=== PATIENT | male | born 1980 | race Hispanic/Latino ===

== ENCOUNTER 2018-01-20 09:20 | Day surgery (SDC) | payer MEDICARE ==
[2018-01-19 08:40] VITALS: BP 148/71
[2018-01-19 08:44] LABS: BASOPHILS % (AUTO) 0.9 % (0.0-5.0); EOSINOPHILS % (AUTO) 6.6 % (0.0-8.0); HEMATOCRIT 27.5 % (42-54); LYMPHOCYTES % (AUTO) 20.6 % (21.0-51.0); MEAN CORPUSCULAR HEMOGLOBIN 31.1 pg (27.0-33.0); MEAN CORPUSCULAR HGB CONC 34.6 g/dL (32.0-36.0); MEAN CORPUSCULAR VOLUME 89.8 fL (79-99); MONOCYTES % (AUTO) 8.3 % (3.0-13.0); NEUTROPHILS % (AUTO) 63.6 % (40.0-77.0); PLATELET COUNT (AUTO) 134 K/uL (130-400); RED BLOOD CELL COUNT(AUTO) 3.06 MIL/uL (4.50-6.20); RED CELL DISTRIBUTION WIDTH 16.1 % (11.0-15.5); WHITE BLOOD COUNT (AUTO) 6.5 K/uL (4.8-10.8)
[2018-01-19 08:55] LABS: POTASSIUM 4.7 mmol/L (3.5-5.1)
[2018-01-19 08:56] LABS: INR 0.97 (0.85-1.15); PARTIAL THROMBOPLASTIN TIME 27.2 SEC (26.3-35.5); PROTHROMBIN TIME 10.2 SEC (9.6-11.6)
[2018-01-19 08:58] LABS: CREATININE 10.3 mg/dL (0.5-1.5)
[~2018-01-20] VITALS: Ht 177.8 cm; Wt 87.8 kg
[2018-01-20] VITALS (7 sets, daily range): BP systolic 149–155; BP diastolic 81–84
[~2018-01-20 09:20] MED LIST: ALPR2TAB7 PO; AMLO10TA2 PO; CINA30 PO; HUM10VIA6 SQ; LABE300T2 PO; LEVO50TA11 PO; LISI30TA4 PO; LORA10TA7 PO; PARO-37 PO; ROSU20TA PO; SODIUM CHLORIDE 0.9% 500ML 500 ML IV SCH
[2018-01-20] MEDS ORDERED: LIDOCAINE HCL 2% 20ML ONE (10:19)
[2018-01-20] MEDS ORDERED: IOPAMIDOL-370 100 ML VIAL IV ONE (10:19)
[2018-01-20] MEDS ORDERED: NITROGLYCERIN 5 MG/ML 10 ML VIAL IV ONE (10:19)
[2018-01-20] MEDS ORDERED: HEPARIN SODIUM 1000UNIT/ML 10ML VIAL ONE (10:19)
[2018-01-20] MEDS ORDERED: SODIUM CHLORIDE 0.9% 1000ML 1,000 ML IV ONE (10:22)
[2018-01-20] MEDS ORDERED: ISOVUE-370 50ML VIAL IV ONE ×2 (10:40→11:06)
[2018-01-20] MEDS ORDERED: MIDAZOLAM HCL 1 MG/ML 2ML VIAL ONE ×2 (10:59→11:18)
[2018-01-20] MEDS ORDERED: FENTANYL CITRATE PF 50 MCG/1 ML 2ML VIAL ONE (10:59)
[2018-01-20] MEDS ORDERED: ISOVUE-300 100 ML VIAL IV ONE (11:05)
[2018-01-20] MEDS ORDERED: ONDANSETRON HCL 4 MG/2 ML VIAL ONE (11:34)
[2018-01-20] MEDS ORDERED: NITROGLYCERIN 0.4 MG SL TAB SL PRN (11:45)
[2018-01-20] MEDS ORDERED: DEXTROSE 50%-WATER 50 ML DISP.SYRIN IV PRN (11:45)
[2018-01-20] MEDS ORDERED: GLUCAGON 1MG KIT 1 MG ML IM PRN (11:45)
[2018-01-20] MEDS ORDERED: HYDRALAZINE HCL 20 MG/ML VIAL ONE (11:53)
[2018-01-20] MEDS ORDERED: INSULIN HUMULIN R 100 UNIT/ML 3ML SQ SCH (16:30)
== END 2018-01-20 15:50 | disposition home or self-care (01) ==
LOC: DAH 09:20
PROVIDERS: ATTEND Internal Medicine Cardiovascular Disease
DX: I25.10 Atherosclerotic heart disease of native coronary artery without angina pectoris (principal); I73.89 Other specified peripheral vascular diseases; E11.22 Type 2 diabetes mellitus with diabetic chronic kidney disease; N18.6 End stage renal disease; Z99.2 Dependence on renal dialysis; E11.40 Type 2 diabetes mellitus with diabetic neuropathy, unspecified; E78.5 Hyperlipidemia, unspecified; Z98.890 Other specified postprocedural states; Z83.3 Family history of diabetes mellitus; Z79.899 Other long term (current) drug therapy; Z79.4 Long term (current) use of insulin; Z79.84 Long term (current) use of oral hypoglycemic drugs; I31.3 Pericardial effusion (noninflammatory); I13.2 Hypertensive heart and chronic kidney disease with heart failure and with stage 5 chronic kidney disease, or end stage renal disease; I50.32 Chronic diastolic (congestive) heart failure; I70.218 Atherosclerosis of native arteries of extremities with intermittent claudication, other extremity
CPT/HCPCS: 36415; 71045; 75630; 80048; 82948 ×2; 85025; 85610; 85730; 93005; 93306; 93458; 99152; C1760; C1894 ×2; J0360; J1644; J2250 ×2; J2405; J3010; J3490 ×2; J7030; Q9967 ×3; 75625; 99153; 99156; 99157

== ENCOUNTER 2018-02-01 16:25 | Emergency (ER) | payer MEDICARE ==
[~2018-02-01 16:25] MED LIST changes: -SODIUM CHLORIDE 0.9% 500ML 500 ML IV SCH
[2018-02-01] MEDS ORDERED: ACETAMINOPHEN EXTRA STRENGTH 500 MG TABLET ONE (16:45)
== END 2018-02-01 17:24 | disposition home or self-care (01) ==
LOC: EDH 16:25
DX: S90.32XA Contusion of left foot, initial encounter (principal); I13.2 Hypertensive heart and chronic kidney disease with heart failure and with stage 5 chronic kidney disease, or end stage renal disease; E11.22 Type 2 diabetes mellitus with diabetic chronic kidney disease; N18.6 End stage renal disease; I50.9 Heart failure, unspecified; Z99.2 Dependence on renal dialysis; Z86.73 Personal history of transient ischemic attack (TIA), and cerebral infarction without residual deficits; W05.0XXA Fall from non-moving wheelchair, initial encounter; Y93.89 Activity, other specified; Y92.098 Other place in other non-institutional residence as the place of occurrence of the external cause; Y99.8 Other external cause status
CPT/HCPCS: 73630

== ENCOUNTER 2018-06-04 16:52 | Emergency (ER) | payer MEDICARE ==
[~2018-06-04 16:52] MED LIST changes: -AMLO10TA2 PO; +AMLO10TA6 PO
[2018-06-04 17:09] LABS: BASOPHILS % (AUTO) 1.2 % (0.0-5.0); EOSINOPHILS % (AUTO) 6.9 % (0.0-8.0); HEMATOCRIT 33.7 % (42-54); LYMPHOCYTES % (AUTO) 23.7 % (21.0-51.0); MEAN CORPUSCULAR HEMOGLOBIN 27.7 pg (27.0-33.0); MEAN CORPUSCULAR VOLUME 86.6 fL (79-99); MONOCYTES % (AUTO) 8.3 % (3.0-13.0); NEUTROPHILS % (AUTO) 59.9 % (40.0-77.0); NUCLEATED RED BLOOD CELLS 0.1 % (0.0-0.19); PLATELET COUNT (AUTO) 183 K/uL (130-400); RED CELL DISTRIBUTION WIDTH 16.9 % (11.0-15.5)
[2018-06-04 17:19] LABS: INR 0.98 (0.85-1.15); PARTIAL THROMBOPLASTIN TIME 26.8 SEC (26.3-35.5); PROTHROMBIN TIME 10.3 SEC (9.6-11.6)
[2018-06-04 17:22] LABS: ALBUMIN 3.2 g/dL (3.5-5.0); BILIRUBIN,TOTAL 0.5 mg/dL (0.2-1.0); POTASSIUM 4.4 mmol/L (3.5-5.1); TOTAL PROTEIN, SERUM 6.4 g/dL (6.0-8.3)
[2018-06-04] MEDS ORDERED: NITROGLYCERIN 1GM/1 INCH PACKET TD ONE (17:23)
[2018-06-04] MEDS ORDERED: ASPIRIN 325 MG TABLET ONE (17:23)
[2018-06-04 17:39] LABS: CREATININE 9.5 mg/dL (0.5-1.5)
[2018-06-04 17:40] LABS: B-TYPE NATRIURETIC PEPTIDE 1630 pg/mL (0-100)
[2018-06-04 17:43] LABS: TROPONIN I 0.04 ng/mL (0.00-0.06)
== END 2018-06-04 19:27 | disposition left against medical advice (07) ==
LOC: EDH 16:52
DX: R07.1 Chest pain on breathing (principal); I13.2 Hypertensive heart and chronic kidney disease with heart failure and with stage 5 chronic kidney disease, or end stage renal disease; E11.22 Type 2 diabetes mellitus with diabetic chronic kidney disease; N18.6 End stage renal disease; I50.9 Heart failure, unspecified; E78.5 Hyperlipidemia, unspecified; Z99.2 Dependence on renal dialysis; Z86.73 Personal history of transient ischemic attack (TIA), and cerebral infarction without residual deficits; Z98.890 Other specified postprocedural states
CPT/HCPCS: 36415; 71045; 80053; 82550; 83874; 83880; 84484; 85025; 85610; 85730; 93005

== ENCOUNTER → 2022-06-23 | Outpatient (CLI) | payer MEDICARE ==
[~2022-06-23] MED LIST changes: +AMLO-258 PO; -AMLO10TA6 PO; -LABE300T2 PO; +LABE300T4 PO; +REGADENOSON 0.4 MG/5 ML PF SYG IVP SCH; -ROSU20TA PO; +ROSU20TA23 PO
== END | disposition home or self-care (01) ==
LOC: SHCH 09:16
PROVIDERS: ATTEND Internal Medicine Cardiovascular Disease
DX: I25.119 Atherosclerotic heart disease of native coronary artery with unspecified angina pectoris (principal); R07.9 Chest pain, unspecified
CPT/HCPCS: 78452; 93017; J2785; A9500 ×2; 96374

== ENCOUNTER → 2022-08-06 | Outpatient (CLI) | payer MEDICAID, MEDICARE ==
[~2022-08-06] MED LIST changes: -REGADENOSON 0.4 MG/5 ML PF SYG IVP SCH
== END | disposition home or self-care (01) ==
LOC: SHCH 12:50
PROVIDERS: ATTEND Internal Medicine Cardiovascular Disease
DX: I87.2 Venous insufficiency (chronic) (peripheral) (principal); I65.23 Occlusion and stenosis of bilateral carotid arteries; I73.9 Peripheral vascular disease, unspecified
CPT/HCPCS: 93880; 93925; 93970

== ENCOUNTER 2022-10-21 07:26 | Day surgery (SDC) | payer MEDICAID ==
[2022-10-19 13:41] LABS: APPEARANCE,URINE CLEAR (CLEAR); BILIRUBIN,URINE NEGATIVE (NEGATIVE); COLOR,URINE LIGHT-YELLOW (YELLOW); GLUCOSE, URINE (UA) 500 mg/dL (NEGATIVE); KETONES,URINE NEGATIVE (NEGATIVE); LEUKOCYTE ESTERASE ,URINE NEGATIVE Leu/uL (NEGATIVE); NITRATE,URINE NEGATIVE (NEGATIVE); OCCULT BLOOD,URINE NEGATIVE (NEGATIVE); PROTEIN,URINE 10 mg/dL (NEGATIVE); UROBILINOGEN,URINE 0.2 mg/dL (0.2-1.0)
[2022-10-19 13:47] LABS: BACTERIA,URINE FEW /HPF (None Seen); MUCUS,URINE RARE LPF (None Seen); SQUAMOUS EPITHELIAL CELL,UR RARE /HPF (0-2)
[2022-10-19 14:07] LABS: BASOPHILS % (AUTO) 0.4 % (0.0-5.0); EOSINOPHILS % (AUTO) 1.5 % (0.0-8.0); HEMATOCRIT 43.7 % (42-54); LYMPHOCYTES % (AUTO) 15.9 % (21.0-51.0); MEAN CORPUSCULAR HGB CONC 31.6 g/dL (32.0-36.0); MONOCYTES % (AUTO) 9.3 % (3.0-13.0); NEUTROPHILS % (AUTO) 72.7 % (40.0-77.0); PLATELET COUNT (AUTO) 202 K/uL (130-400); RED CELL DISTRIBUTION WIDTH 13.3 % (11.0-15.5); WHITE BLOOD COUNT (AUTO) 8.2 K/uL (4.8-10.8)
[2022-10-19 14:12] VITALS: BP 145/70
[2022-10-19 14:17] LABS: PROTHROMBIN TIME 10.9 SEC (9.6-11.6)
[2022-10-19 14:19] LABS: PARTIAL THROMBOPLASTIN TIME 30.8 SEC (26.3-35.5)
[2022-10-19 14:31] LABS: CREATININE 1.9 mg/dL (0.5-1.5)
[2022-10-19 14:35] LABS: B-TYPE NATRIURETIC PEPTIDE 48 pg/mL (0-100)
[~2022-10-21] VITALS: Ht 182.9 cm; Wt 136.1 kg
[2022-10-21] VITALS (13 sets, daily range): BP systolic 144–200; BP diastolic 65–101
[2022-10-21] MEDS ORDERED: 0.9%NACL 1000ML 1,000 ML IV ONE (07:41)
[2022-10-21] MEDS ORDERED: IOHEXOL 350 MG/ML 100ML INFUS..BTL IV ONE (08:56)
[2022-10-21] MEDS ORDERED: HEPARIN 10,000 UNIT/10ML (1,000 UNIT/ML) VIAL ONE (08:56)
[2022-10-21] MEDS ORDERED: MIDAZOLAM HCL 1 MG/ML 2ML VIAL ONE (08:57)
[2022-10-21] MEDS ORDERED: FENTANYL CITRATE PF 50 MCG/1 ML 2ML VIAL ONE (08:57)
[2022-10-21] MEDS ORDERED: LIDOCAINE HCL 400MG/20ML VIAL ONE (08:57)
[2022-10-21] MEDS ORDERED: CARV25TA PO (09:22)
[2022-10-21] MEDS ORDERED: HYDR-4154 PO (09:22)
[2022-10-21] MEDS ORDERED: CALC-866 PO (09:22)
[2022-10-21] MEDS ORDERED: INSU100V37 SQ (09:22)
[2022-10-21] MEDS ORDERED: TACR1CAP10 PO (09:22)
[2022-10-21] MEDS ORDERED: OMEP40CA21 PO (09:22)
[2022-10-21] MEDS ORDERED: MYCO360T3 PO (09:22)
[2022-10-21] MEDS ORDERED: INSU100I47 SQ (09:22)
[2022-10-21] MEDS ORDERED: LABETALOL 20MG SYG IV ONE (10:07)
[2022-10-21] MEDS ORDERED: CLOPIDOGREL 300MG TAB ONE (10:17)
[2022-10-21] MEDS ORDERED: ASPIRIN 81MG CHEW TAB ONE (10:17)
[2022-10-21] MEDS ORDERED: NITROGLYCERIN 0.4 MG SL TAB SL PRN (10:30)
[2022-10-21] MEDS ORDERED: 0.9%NACL 1000ML 1,000 ML IV SCH (10:30)
[2022-10-21] MEDS ORDERED: DEXTROSE 50%-WATER 50 ML DISP.SYRIN IV PRN (10:30)
[2022-10-21] MEDS ORDERED: GLUCAGON 1MG KIT 1 MG ML IM PRN (10:30)
[2022-10-21] MEDS ORDERED: INSULIN HUMULIN R 100 UNIT/ML 3ML SQ SCH (11:30)
[2022-10-21] MEDS ORDERED: HYDROCODONE/ACETAMINOPHEN 7.5/325 MG TAB ONE (11:45)
[2022-10-21] MEDS ORDERED: HYDROCODONE/ACETAMINOPHEN 7.5/325 MG TAB PO PRN (15:00)
== END 2022-10-21 17:10 | disposition home or self-care (01) ==
LOC: DAH 07:26
PROVIDERS: ATTEND Internal Medicine Cardiovascular Disease
DX: D72.0 Genetic anomalies of leukocytes (principal); I87.1 Compression of vein; I87.2 Venous insufficiency (chronic) (peripheral); E11.22 Type 2 diabetes mellitus with diabetic chronic kidney disease; E11.51 Type 2 diabetes mellitus with diabetic peripheral angiopathy without gangrene; I12.0 Hypertensive chronic kidney disease with stage 5 chronic kidney disease or end stage renal disease; N18.6 End stage renal disease; E11.40 Type 2 diabetes mellitus with diabetic neuropathy, unspecified; E11.21 Type 2 diabetes mellitus with diabetic nephropathy; E78.5 Hyperlipidemia, unspecified; F41.9 Anxiety disorder, unspecified; F32.A Depression, unspecified; Z79.01 Long term (current) use of anticoagulants; Z79.4 Long term (current) use of insulin; Z79.899 Other long term (current) drug therapy; Z82.49 Family history of ischemic heart disease and other diseases of the circulatory system; Z79.890 Hormone replacement therapy; Z83.3 Family history of diabetes mellitus; Z83.438 Family history of other disorder of lipoprotein metabolism and other lipidemia; Z99.2 Dependence on renal dialysis; Z86.73 Personal history of transient ischemic attack (TIA), and cerebral infarction without residual deficits
CPT/HCPCS: 80048; 83880; 85025; 85610; 85730; 81001; 36415; 93005; 37238; 37239; 36012; 37252; 37253 ×5; 82948 ×2; 75822; C1876 ×2; C1894 ×3; C1725; C1753; C1769; J3010; J3490; J7030; J1644 ×2; J2250; Q9967; A4215; A4222; A4221; A4663; A4216; A4606; A4223 ×3; 96360; 96361; 99156; 99157

== ENCOUNTER → 2024-08-15 | Outpatient (CLI) | payer MEDICAID ==
[~2024-08-15] MED LIST changes: +AEC81 PO; -AMLO-258 PO; +CALC-866 PO; +CARV25TA PO; -CINA30 PO; +CLOP75TA32 PO; -HUM10VIA6 SQ; +HYDR-4064 PO; +HYDR50TA37 PO; +INSU100I47 SQ; +INSU100V37 SQ; -LABE300T4 PO; -LISI30TA4 PO; -LORA10TA7 PO; +OMEP40CA21 PO; +TACR1CAP10 PO; +[UNRECOGNIZED DRUG - CODE] PO
--- NOTE | 2024-08-19 17:29 | HMCSR ---
APPROVED REPORT Bilateral Lower Extremity Venous Study for DVT., Venous Competence. Indications i87.1, i87.2 Vein Imaging CFV (R): Normal flow, augmentation and compression. No evidence of DVT. 12.9mm 594ms of reflux. SFJ (R): Normal flow, augmentation and compression. No evidence of DVT. FEM (R): Normal flow with augmentation. No evidence of DVT POP (R): Normal flow, augmentation and compression. No evidence of DVT. DFV (R): Normal flow, augmentation and compression. No evidence of DVT. PTV (R): Normal flow, augmentation and compression. No evidence of DVT. Peroneals (R): Normal flow, augmentation and compression. No evidence of DVT. CFV (L): Normal flow, augmentation and compression. No evidence of DVT. 12.7mm 1006ms of reflux. SFJ (L): Normal flow, augmentation and compression. No evidence of DVT. FEM (L): Normal flow with augmentation. No evidence of DVT POP (L): Normal flow, augmentation and compression. No evidence of DVT. DFV (L): Normal flow, augmentation and compression. No evidence of DVT. PTV (L): Normal flow, augmentation and compression. No evidence of DVT. Peroneals (L): Normal flow, augmentation and compression. No evidence of DVT. Technologist Impression Deep veins of the bilateral lower extremities appear patent and compressible without thrombus. Right and Left SFV difficult to image. Deep venous relfux noted in the LCFV. No superifical venous insufficiency seen. RGSV junction 7.5mm 417ms thigh 4.2mm 0.0ms knee 3.5mm 0.0ms calf 2.9mm 0.0ms RSSV prox 1.7mm 0.0ms mid 1.2mm 0.0ms LGSV junction 8.0mm 417ms thigh 3.0mm 0.0ms knee 2.8mm 0.0ms calf 3.0mm 0.0ms LSSV prox 2.3mm 0.0ms mid 2.4mm 0.0ms Conclusion Right and Left SFV difficult to image. Deep venous relfux noted in the LCFV. No superifical venous insufficiency seen. Conclusion Right and Left SFV difficult to image. Deep venous relfux noted in the LCFV. No superifical venous insufficiency seen.
== END | disposition home or self-care (01) ==
LOC: SHCH 08:52
PROVIDERS: ATTEND Internal Medicine Cardiovascular Disease
DX: I87.2 Venous insufficiency (chronic) (peripheral) (principal); I87.1 Compression of vein
CPT/HCPCS: 93970